=== PATIENT | male | born 1980 | race African-American/Black ===

== ENCOUNTER 2016-10-20 01:39 | Emergency (ER) | payer BC ==
[~2016-10-20] VITALS: Ht 177.8 cm; Wt 85.7 kg
[2016-10-20] MEDS ORDERED: NAPROXEN 250 MG TABLET PO ONE (02:45)
[2016-10-20 03:27] VITALS: BP 112/71
[2016-10-20] MEDS ORDERED: NAPR250T2 PO (03:51)
[2016-10-20] MEDS ORDERED: CYCL10TA2 PO (03:51)
--- NOTE | 2016-10-20 06:16 | ED.ADGEN ---
Past Medical History Past Medical History: Asthma, Pneumonia Past Surgical History: No Surgical History Alcohol Use: Occasionally Drug Use: Marijuana Adult General Chief Complaint Chief Complaint: CHEST PAIN HPI HPI Patient is a 36 year old man, history of asthma, who presents to the emergency department with complaint of left upper chest pain that began 10 days ago. 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 Patient states that he attempted to treat this pain with ibuprofen at home, took a dose yesterday without relief. He states that he has not had similar symptoms previously, denies any recent travel or surgery, history of DVT or PE, any history of sudden cardiac or other cardiac issues in young people in his family. He denies any drugs, or alcohol, does smoke cigarettes daily. Denies any rhinorrhea, sore throat or cough. Review of Systems Review of Systems Constitutional: Denies fever or chills. [] Eyes: Denies change in visual acuity. [] HENT: Denies nasal congestion or sore throat. [] Respiratory: Denies cough or shortness of breath. [] Cardiovascular: Left upper chest wall pain, worse with motion, no edema. GI: Denies abdominal pain, nausea, vomiting, bloody stools or diarrhea. [] : Denies dysuria. [] Musculoskeletal: Denies back pain or joint pain. [] Integument: Denies rash. [] Neurologic: Denies headache, focal weakness or sensory changes. [] Endocrine: Denies polyuria or polydipsia. [] Lymphatic: Denies swollen glands. [] Psychiatric: Denies depression or anxiety. [] Current Medications Current Medications Current Medications Medications (Trade) Dose Ordered Sig/Dale Start Time Stop Time Status Last Admin Dose Admin Naproxen (Naprosyn) 250 mg 1X ONCE 10/20/16 02:45 10/20/16 02:46 DC 10/20/16 02:57 250 MG Allergies Allergies Allergies Coded Allergies Type Severity Reaction Last Updated Verified No Known Drug Allergies 05/01/15 No Physical Exam Physical Exam Constitutional: Well developed, well nourished, no acute distress, non-toxic appearance. [] HENT: Normocephalic, atraumatic, bilateral external ears normal, oropharynx moist, no oral exudates, nose normal. [] Eyes: PERRLA, EOMI, conjunctiva normal, no discharge. [] Neck: Normal range of motion, no tenderness, supple, no stridor. [] Cardiovascular:Heart rate regular rhythm, no murmur , S1, S2, no rubs or gallops. [] Lungs & Thorax: Bilateral breath sounds clear to auscultation, no wheezing, rhonchi, rales. Patient with a reducible point tenderness located of the left anterior chest wall, between ribs 3 and 4, no lesions or crepitus or other abnormalities identified. [] Abdomen: Bowel sounds normal, soft, no tenderness, no masses, no pulsatile masses. [] Skin: Warm, dry, no erythema, no rash. [] Back: No tenderness, no CVA tenderness. [] Extremities: No tenderness, no cyanosis, no clubbing, ROM intact, no edema. Negative Homans sign. [] Neurologic: Alert and oriented X 3, normal motor function, normal sensory function, no focal deficits noted. [] Psychologic: Affect normal, judgement normal, mood normal. [] Current Patient Data Vital Signs Vital Signs Date Time Temp Pulse Resp B/P Pulse Ox O2 Delivery O2 Flow Rate FiO2 10/20/16 03:27 64 16 112/71 95 Room Air 10/20/16 02:29 16 10/20/16 01:44 97.5 97.5 EKG EKG EC: Sinus rhythm, heart rate 71 beats/minute, upright axis, QTC 4:15, UT 180, QRS of 74, patient with some artifact noted in the baseline, no ST elevations, [as interpreted by me.] Radiology/Procedures Radiology/Procedures Chest x-ray: PA and lateral: Normal cardiopulmonary silhouette, no infiltrates, no effusions, no soft tissue or bony abnormalities identified. No pneumothorax. As interpreted by me. [] Course & Med Decision Making Course & Med Decision Making Pertinent Labs and Imaging studies reviewed. (See chart for details) Patient well-appearing, point tender reproducible anterior chest wall pain, history is consistent with costochondritis of the examination. Chest x-ray and ECG does not reveal any evidence of concerning findings, patient received cyclobenzaprine and naproxen in the ED, discuss findings with patient, he is agreeable to plan to follow-up with a primary care provider from list given to him at discharge for additional evaluation, to use cyclobenzaprine and naproxen as needed at home, will also receive a work note for today, as he is here early in the morning, given clear and detailed return instructions and also medication precautions with which he voiced understanding and agreement. Patient discharged home in stable condition with plan as above Peggy Disclaimer Dragon Disclaimer This electronic medical record was generated, in whole or in part, using a voice recognition dictation system. Departure Impression: Primary Impression: Costochondral chest pain Disposition: HOME, SELF-CARE Condition: STABLE Scripts Naproxen 250 Mg [id number] Mg PO BID PRN PAIN #10 Prov:RAUDEL GOMEZ DO 10/20/16 Cyclobenzaprine Hcl 10 Mg [id number] Mg PO TID PRN PAIN #12 TAB Prov:RAUDEL GOMEZ DO 10/20/16 RAUDEL GOMEZ DO Oct 20, 2016 06:16
--- NOTE | 2016-10-20 06:59 | EKG ---
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
--- NOTE | 2016-10-20 07:21 | RAD ---
Indication: Chest pain. Time of exam 0241 hours. FINDINGS: The heart size is normal. The lungs are clear. No pleural effusion or pneumothorax is identified. The pulmonary vascularity is normal. IMPRESSION: No acute abnormality detected.
== END 2016-10-20 04:04 | disposition home or self-care (01) ==
LOC: ER 01:39
DX: R07.1 Chest pain on breathing (principal); J45.909 Unspecified asthma, uncomplicated; F12.10 Cannabis abuse, uncomplicated; Z87.01 Personal history of pneumonia (recurrent)
CPT/HCPCS: 71020; 93005; 99284-25

== ENCOUNTER 2016-10-22 01:38 | Emergency (ER) | payer BC ==
[~2016-10-22] VITALS: Ht 180.3 cm; Wt 88.5 kg
[~2016-10-22 01:38] MED LIST: CYCL10TA2 PO; NAPR250T2 PO
[2016-10-22 03:05] LABS: BASO % 1 % (0-3); EOS % 3 % (0-3); HEMATOCRIT 39.7 % (39.0-53.0); HEMOGLOBIN 12.8 g/dL (13.0-17.5); LYMPH # 3.2 x10^3/uL (1.0-4.8); LYMPH % 41 % (24-48); MEAN CORPUSCULAR HEMOGLOBIN 29 pg (25-35); MEAN CORPUSCULAR HGB CONC 32 g/dL (31-37); MEAN CORPUSCULAR VOLUME 89 fL (79-100); MONO % 11 % (0-9); NEUT % 44 % (31-73); PLATELET COUNT 239 x10^3/uL (140-400); RED BLOOD COUNT 4.45 x10^6/uL (4.30-5.70); RED CELL DISTRIBUTION WIDTH 13.5 % (11.5-14.5); WHITE BLOOD COUNT 7.8 x10^3/uL (4.0-11.0)
[2016-10-22 03:12] LABS: CALCIUM 8.7 mg/dL (8.5-10.1); GFR 102.3; POTASSIUM 3.4 mmol/L (3.5-5.1)
--- NOTE | 2016-10-22 03:37 | PHYS DOC ---
Past Medical History Past Medical History: Asthma, Pneumonia Past Surgical History: No Surgical History Alcohol Use: Occasionally Drug Use: Marijuana Adult General Chief Complaint Chief Complaint: CHEST WALL PAIN [facility] HPI Patient is a 36 year old male who presents with left upper anterior chest wall pain and feeling a "knot" where his pain is located. This didn't present for the past 2 weeks. He was seen in the emergency department 2 days ago and prescribed naproxen and Flexeril. He has not filled these medications yet. He returns for continued symptoms. He has achy pain that is constant and worse with movement of his left arm or with any kind of cough. He states he only coughs when he is in the cold weather. He denies difficulty breathing, palpitations, diaphoresis, exertional symptoms, orthopnea, leg pain or swelling , hemoptysis, rash, weight loss, night sweats. Review of Systems Review of Systems Constitutional: Denies fever or chills [] Eyes: Denies change in visual acuity, redness, or eye pain [] HENT: Denies nasal congestion or sore throat [] Respiratory: Denies cough or shortness of breath [] Cardiovascular: No additional information not addressed in HPI [] GI: Denies abdominal pain, nausea, vomiting, bloody stools or diarrhea [] : Denies dysuria or hematuria [] Musculoskeletal: Denies back pain or joint pain [] Integument: Denies rash or skin lesions [] Neurologic: Denies headache, focal weakness or sensory changes [] Endocrine: Denies polyuria or polydipsia [] Current Medications Current Medications Current Medications Medications (Trade) Dose Ordered Sig/[facility] Start Time Stop Time Status Last Admin Dose Admin Ketorolac Tromethamine (Toradol) 15 mg 1X ONCE 10/22/16 04:00 10/22/16 04:01 DC 10/22/16 04:29 15 MG Allergies Allergies Allergies Coded Allergies Type Severity Reaction Last Updated Verified No Known Drug Allergies 05/01/15 No Physical Exam Physical Exam Constitutional: Well developed, well nourished, no acute distress, non-toxic appearance. [] HENT: Normocephalic, atraumatic, bilateral external ears normal, oropharynx moist, nose normal. [] Eyes: PERRLA, EOMI. [] Neck: Normal range of motion, supple. [] Cardiovascular:Heart rate regular rhythm [] Lungs & Thorax: Bilateral breath sounds clear to auscultation. Left upper chest wall with soft, mobile tissue mass that is mildly tender and duplicates his symptoms. There is no overlying skin changes, induration, crepitance, warmth , or fluctuance [] Abdomen: Bowel sounds normal, soft, no tenderness. [] Skin: Warm, dry, no erythema, no rash. [] Back: Normal range of motion. [] Extremities: No tenderness, ROM intact, no edema, no palpable cord. [] Neurologic: Alert and oriented X 3, normal motor function, normal sensory function, no focal deficits noted. [] Psychologic: Affect normal, judgement normal, mood normal. [] Current Patient Data Vital Signs Vital Signs Date Time Temp Pulse Resp B/P Pulse Ox O2 Delivery O2 Flow Rate FiO2 10/22/16 04:23 62 13 96/64 96 10/22/16 01:40 98.2 Room Air 98.2 Lab Values Laboratory Tests Test 10/22/16 01:53 White Blood Count 7.8x10^3/uL (4.0-11.0) Red Blood Count 4.45x10^6/uL (4.30-5.70) Hemoglobin 12.8g/dL (13.0-17.5) L Hematocrit 39.7% (39.0-53.0) Mean Corpuscular Volume 89fL (79-100) Mean Corpuscular Hemoglobin 29pg (25-35) Mean Corpuscular Hemoglobin Concent 32g/dL (31-37) Red Cell Distribution Width 13.5% (11.5-14.5) Platelet Count 239x10^3/uL (140-400) Neutrophils (%) (Auto) 44% (31-73) Lymphocytes (%) (Auto) 41% (24-48) Monocytes (%) (Auto) 11% (0-9) H Eosinophils (%) (Auto) 3% (0-3) Basophils (%) (Auto) 1% (0-3) Neutrophils # (Auto) 3.5x10^3uL (1.8-7.7) Lymphocytes # (Auto) 3.2x10^3/uL (1.0-4.8) Monocytes # (Auto) 0.8x10^3/uL (0.0-1.1) Eosinophils # (Auto) 0.3x10^3/uL (0.0-0.7) Basophils # (Auto) 0.0x10^3/uL (0.0-0.2) Sodium Level 140mmol/L (136-145) Potassium Level 3.4mmol/L (3.5-5.1) L Chloride Level 105mmol/L (98-107) Carbon Dioxide Level 30mmol/L (21-32) Anion Gap 5 (6-14) L Blood Urea Nitrogen 15mg/dL (8-26) Creatinine 1.0mg/dL (0.7-1.3) Estimated GFR (Cockcroft-Gault) 102.3 Glucose Level 92mg/dL (70-99) Calcium Level 8.7mg/dL (8.5-10.1) Laboratory Tests 10/22/16 01:53 Laboratory Tests 10/22/16 01:53 EKG EKG EKG as interpreted by me as sinus bradycardia, rate 54, no ST-T changes, normal intervals, no ectopy Course & Med Decision Making Course & Med Decision Making Pertinent Labs and Imaging studies reviewed. (See chart for details) I reviewed his chest x-ray from prior visit, which is unremarkable. His laboratory evaluation is unremarkable today. I encouraged him to fill his prescriptions that he received prior and to follow-up with his primary care doctor. Return precautions given. He understands and agrees with plan. Dragon Disclaimer Dragon Disclaimer This electronic medical record was generated, in whole or in part, using a voice recognition dictation system. Departure Departure Impression: Primary Impression: Chest wall pain Disposition: HOME, SELF-CARE Condition: STABLE Referrals: NO PCP (PCP) Patient Instructions: Chest Wall Pain, [id number] Additional Instructions: Take your medications as prescribed last visit. Follow-up with your primary care doctor. Return for any concerns. Lea POP MD Oct 22, 2016 03:37
[2016-10-22] MEDS ORDERED: KETOROLAC 15 MG/ML VIAL. IV ONE (04:00)
[2016-10-22 04:23] VITALS: BP 96/64
--- NOTE | 2016-10-22 09:18 | EKG ---
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
== END 2016-10-22 04:34 | disposition home or self-care (01) ==
LOC: ER 01:40
DX: R07.89 Other chest pain (principal); J45.909 Unspecified asthma, uncomplicated; F12.10 Cannabis abuse, uncomplicated; Z87.01 Personal history of pneumonia (recurrent)
CPT/HCPCS: 36415; 80048; 85027; 93005; 96374; 99285; J1885

== ENCOUNTER 2017-04-03 15:57 | Emergency (ER) | payer BC ==
[2017-04-03 16:07] VITALS: BP 103/71
[2017-04-03] MEDS ORDERED: CYCL10TA2 PO (16:18)
--- NOTE | 2017-04-03 16:20 | PHYS DOC ---
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 He denies any trauma or injury. 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 He also states that he has been moving his family this past week. He states he's been trying ibuprofen and Tylenol for pain and discomfort with minimal relief. He does state however he went to Dr. Li's office today and had a cortisone injection. He states he is still having increased pain with decreased range of motion of the right arm. He denies any numbness or tingling into the hands to the provider according to nursing staff he did have tingling in the fingers. Patient denies any trauma or injury. Patient is right hand dominant. Review of Systems Review of Systems Constitutional: Denies fever or chills [] Eyes: Denies change in visual acuity, redness, or eye pain [] HENT: Denies nasal congestion or sore throat [] Respiratory: Denies cough or shortness of breath [] Cardiovascular: No additional information not addressed in HPI [] GI: Denies abdominal pain, nausea, vomiting, bloody stools or diarrhea [] : Denies dysuria or hematuria [] Musculoskeletal: Complaining of right upper back pain and discomfort, right shoulder pain Integument: Denies rash or skin lesions [] Neurologic: Denies headache, focal weakness or sensory changes [] Endocrine: Denies polyuria or polydipsia [] Allergies Allergies Allergies Coded Allergies Type Severity Reaction Last Updated Verified No Known Drug Allergies 05/01/15 No Physical Exam Physical Exam Constitutional: Well developed, well nourished, no acute distress, non-toxic appearance. [] HENT: Normocephalic, atraumatic, bilateral external ears normal, oropharynx moist, no oral exudates, nose normal. [] Eyes: PERRLA, EOMI, conjunctiva normal, no discharge. [] Neck: Normal range of motion, no tenderness, supple, no stridor. [] Cardiovascular:Heart rate regular rhythm, no murmur [] Lungs & Thorax: Bilateral breath sounds clear to auscultation [] Abdomen: Bowel sounds normal, soft, no tenderness, no masses, no pulsatile masses. [] Skin: Warm, dry, no erythema, no rash. [] Back: Patient with tenderness noted in the right upper back areas Extremities: Right shoulder tenderness, no cyanosis, no clubbing, ROM intact, no edema. Patient with slight weakness on the forearm. Equal director of strategic programs noted bilaterally good sensation noted bilaterally. Peripheral pulses 2+ bilaterally cap refill brisk less than 2 seconds. Patient was noted to have decreased range of motion of the arm and shoulder area. Neurologic: Alert and oriented X 3, normal motor function, normal sensory function, no focal deficits noted. [] Psychologic: Affect normal, judgement normal, mood normal. [] Current Patient Data Vital Signs Vital Signs Date Time Temp Pulse Resp B/P (MAP) Pulse Ox O2 Delivery O2 Flow Rate FiO2 04/03/17 16:07 97.9 80 18 103/71 (82) 99 Room Air 97.9 EKG EKG [] Radiology/Procedures Radiology/Procedures [] Course & Med Decision Making Course & Med Decision Making Pertinent Labs and Imaging studies reviewed. (See chart for details) X-ray per Dr. Murphy appears to be negative for any bony abnormalities. Patient will be discharged home with cyclobenzaprine which she can take for pain and discomfort. Patient will be discharged home in stable condition signs and symptoms to return back to the emergency department will be provided. Patient was encouraged to follow-up with orthopedic. Encouraged ice packs on 20 minutes off 20 minutes several times a day. Ibuprofen 800 mg every 8 hours. Patient agrees with discharge instructions treatment regimens and follow-up recommendations. [] Dragon Disclaimer Dragon Disclaimer This electronic medical record was generated, in whole or in part, using a voice recognition dictation system. Departure Departure Impression: Primary Impression: Right shoulder pain Disposition: 01 HOME, SELF-CARE Condition: STABLE Referrals: NO PCP (PCP) MANI CAMP MD Patient Instructions: Shoulder Pain, [id number] Additional Instructions: X-rays were negative for any bony abnormalities. Use the sling in which you are a half. Sling in which he currently has. Wear the sling whenever you're up ambulating. Continue with ibuprofen 800 mg every 8 hours with food stop taking few develop an upset stomach. Flexeril will help with muscle spasms in which her having in the upper back. This medication will cause drowsiness do not take any be alert and oriented. Ice packs on 20 minutes off 20 minutes several times today. Follow-up with orthopedic in the next week. Return back to emergency department sign symptoms of become worse Scripts Cyclobenzaprine Hcl (CYCLOBENZAPRINE HCL) 10 Mg Tablet 10 MG PO TID, #30 TAB Prov: MANNY COLEMAN APRN 04/03/17 MANNY COLEMAN APRN Apr 03, 2017 16:20
--- NOTE | 2017-04-03 16:37 | RAD ---
Right shoulder, 3 views, 04/03/2017: History: Shoulder pain No fracture or dislocation is identified. The periarticular soft tissues are unremarkable. IMPRESSION: No acute right shoulder abnormality is detected.
== END 2017-04-03 16:45 | disposition home or self-care (01) ==
LOC: ER 15:57
DX: M25.511 Pain in right shoulder (principal); M54.6 Pain in thoracic spine; M79.601 Pain in right arm; J45.909 Unspecified asthma, uncomplicated; F12.10 Cannabis abuse, uncomplicated
CPT/HCPCS: 73030; 99284